=== PATIENT | female | born 1990 | race Two or more races ===

== ENCOUNTER 2017-07-08 12:39 | Inpatient (IN) | payer OTHER ==
[~2017-07-08] VITALS: Ht 160 cm; Wt 173.0 kg
[2017-07-17] MEDS ORDERED: PRENATABS RX T1 EACH PO (08:59)
== END 2017-07-19 10:51 | disposition home or self-care (01) | DRG 775 ==
LOC: OB/GYN 12:39 → LDR 07-17 06:42 → OB/GYN 07-17 18:48
PROC: 10E0XZZ Delivery of Products of Conception, External Approach (ICD-10-PCS; principal; 2017-07-17)
PROC: 0UQMXZZ Repair Vulva, External Approach (ICD-10-PCS; 2017-07-17)
PROC: 3E0P7VZ Introduction of Hormone into Female Reproductive, Via Natural or Artificial Opening (ICD-10-PCS; 2017-07-17)
PROC: 4A1HXCZ Monitoring of Products of Conception, Cardiac Rate, External Approach (ICD-10-PCS; 2017-07-17)
PROC: 4A033R1 Measurement of Arterial Saturation, Peripheral, Percutaneous Approach (ICD-10-PCS; 2017-07-17)
DX: O70.0 First degree perineal laceration during delivery (principal); O48.0 Post-term pregnancy; Z37.0 Single live birth; Z3A.40 40 weeks gestation of pregnancy; O99.820 Streptococcus B carrier state complicating pregnancy

== ENCOUNTER 2019-01-29 09:59 | Outpatient (CLI) | payer OTHER ==
[~2019-01-29 09:59] MED LIST: PRENATABS RX T1 EACH PO
== END 2019-01-29 15:00 | disposition home or self-care (01) ==
LOC: LAB 09:59
DX: Z34.02 Encounter for supervision of normal first pregnancy, second trimester (principal)

== ENCOUNTER 2019-06-01 00:48 | Outpatient (CLI) | payer OTHER | END 2019-06-01 14:25 | disposition home or self-care (01) | LOC: OBS/DEL 00:48 | DX: O9A.313 Physical abuse complicating pregnancy, third trimester (principal); O23.43 Unspecified infection of urinary tract in pregnancy, third trimester; Y07.499 Other family member, perpetrator of maltreatment and neglect ==

== ENCOUNTER 2019-06-13 01:14 | Inpatient (IN) | payer OTHER ==
[~2019-06-13] VITALS: Ht 172.7 cm; Wt 82.6 kg
== END 2019-06-13 13:15 | disposition home or self-care (01) | DRG 833 ==
LOC: LDR 01:14
PROVIDERS: ADMIT Specialist
PROC: BY4FZZZ Ultrasonography of Third Trimester, Single Fetus (ICD-10-PCS; principal; 2019-06-13)
PROC: 4A1HXCZ Monitoring of Products of Conception, Cardiac Rate, External Approach (ICD-10-PCS; 2019-06-13)
DX: O26.843 Uterine size-date discrepancy, third trimester (principal); O42.913 Preterm premature rupture of membranes, unspecified as to length of time between rupture and onset of labor, third trimester

== ENCOUNTER 2019-07-22 08:17 | Inpatient (IN) | payer OTHER | END 2019-07-24 11:48 | disposition home or self-care (01) | DRG 807 | LOC: OB/GYN 08:17 → LDR 08:17 → OB/GYN 13:26 | PROVIDERS: ADMIT Specialist | PROC: 10E0XZZ Delivery of Products of Conception, External Approach (ICD-10-PCS; principal; 2019-07-22) | PROC: 10907ZC Drainage of Amniotic Fluid, Therapeutic from Products of Conception, Via Natural or Artificial Opening (ICD-10-PCS; 2019-07-22) | PROC: 3E033VJ Introduction of Other Hormone into Peripheral Vein, Percutaneous Approach (ICD-10-PCS; 2019-07-22) | PROC: 4A1HXCZ Monitoring of Products of Conception, Cardiac Rate, External Approach (ICD-10-PCS; 2019-07-22) | DX: O80 Encounter for full-term uncomplicated delivery (principal); Z37.0 Single live birth; Z3A.40 40 weeks gestation of pregnancy; Z22.330 Carrier of Group B streptococcus ==